=== PATIENT | male | born 1995 | race Caucasian/White ===

== ENCOUNTER → 2020-11-26 | Outpatient (CLI) | payer BC ==
--- NOTE | 2020-11-26 13:49 | REP ---
INDICATION: LOW BACK PAIN COMPARISON: None. TECHNIQUE: AP, lateral, coned-down views of the lumbar spine. FINDINGS: Three views of the lumbosacral spine demonstrate satisfactory alignment and lordosis without acute fracture / compression injury or subluxation. No significant degenerative changes are appreciated. IMPRESSION: 1. No acute fracture / compression injury or subluxation. 2. No significant degenerative changes identified. If the patient remains symptomatic consider MRI for further investigation. <Electronically signed by Gabriel Sweet > 11/26/20 0460
== END ==
LOC: M WUC 12:03
PROVIDERS: ATTEND Physician Assistant
DX: M54.5 Low back pain (principal)